=== PATIENT | male | born 1980 | race Two or more races ===

== ENCOUNTER → 2022-06-09 | Emergency (ER) | payer OTHER ==
[~2022-06-09] VITALS: Ht 182.9 cm; Wt 105.7 kg
[~2022-06-09] MED LIST: PEPCID AC20 MG
== END | disposition home or self-care (01) ==
LOC: ER 12:17
DX: S83.92XA Sprain of unspecified site of left knee, initial encounter (principal); S83.8X1A Sprain of other specified parts of right knee, initial encounter; Z91.013 Allergy to seafood